=== PATIENT | male | born 1955 | race Caucasian/White ===

== ENCOUNTER 2018-02-04 14:06 | Day surgery (SDC) | payer OTHER ==
[2018-02-04] MEDS ORDERED: LR 1,000 ML IV ONE (14:17)
[2018-02-04] MEDS ORDERED: LIDOCAINE 2% JELLY 20 ML (UROJECT) ONE (15:28)
--- NOTE | 2018-02-04 16:07 | PDHPUP ---
History & Physical Update H&P update statement: This history and physical update is based on an assessment of the patient which was completed after admission or registration (within 24 hours), but prior to the surgery/procedure. H&P update: H&P reviewed & patient examined, no change in patient's condition since H&P completed
[2018-02-04] MEDS ORDERED: CEFAZOLIN 2 GM/DEXTROSE/100 ML BAG IV ONE (16:08)
[2018-02-04] MEDS ORDERED: MIDAZOLAM 2 MG/2 ML VIAL IVP ONE (16:09)
--- NOTE | 2018-02-04 16:09 | PDANEPAE ---
ANE History of Present Illness prostate photovaporization ANE Past Medical History - Cardiovascular History Hx Hypertension: Yes Hx Arrhythmias: No Hx Chest Pain: No Hx Coronary Artery / Peripheral Vascular Disease: No Hx CHF / Valvular Disease: No Hx Palpitations: No - Pulmonary History Hx COPD: No Hx Asthma/Reactive Airway Disease: No Hx Recent Upper Respiratory Infection: No Hx Oxygen in Use at Home: No Hx Sleep Apnea: No Sleep Apnea Screening Result - Last Documented: Negative - Neurologic History Hx Cerebrovascular Accident: No Hx Seizures: No Hx Dementia: No - Endocrine History Hx Diabetes: No Obesity: no Endocrine History Comment: HYPOTHYROID - Renal History Hx Renal Disorders: Yes Renal History Comment: CKD. BPH - Liver History Hx Hepatic Disorders: No - Neurological & Psychiatric Hx Hx Neurological and Psychiatric Disorders: No - Cancer History Hx Cancer: Yes Cancer History Comment: BLADDER - Congenital Disorder History Hx Congenital Disorders: No - GI History Hx Gastrointestinal Disorders: No Gastrointestinal History Comment: INTERMITTENT HEARTBURN - Other Health History Other Health History: PSORIASIS LT LEG - Chronic Pain History Chronic Pain: No - Surgical History Prior Surgeries: AVE EYE LENS REPLACEMENT 11/2017. REMVL BLADDER TUMOR 2013. REMVL PSOAS MASS-BENIGN. RT ING HERNIA. COLONOSCOPY ANE Review of Systems Review of Systems: - Exercise capacity METS (RN): 4 METS ANE Patient History - Allergies Allergies/Adverse Reactions: mushroom Allergy (Verified 09/28/15 13:01) - Home Medications Home medications: home medication list seen and reviewed Home Medications: Crestor 20mg (*) 20 mg PO DAILY 09/28/15 [Last Taken 02/04/18] Levothyroxine 25 mg DAILY 09/28/15 [Last Taken 02/04/18] Lutein 10 mg DAILY 09/28/15 [Last Taken 02/04/18] Fish Oil 1,000 mg Softgel DAILY 01/28/18 [Last Taken 02/04/18] Herbals/Supplements -Info Only DAILY 01/28/18 [Last Taken 02/04/18] Losartan Potassium HS 01/28/18 [Last Taken 02/04/18] - NPO status NPO Since - Liquids (Date): 02/04/18 NPO Since - Liquids (Time): 12:15 NPO Since - Solids (Date): 02/04/18 NPO Since - Solids (Time): 00:15 - Anes Hx Anes Hx: no prior problems - Smoking Hx Smoking Status: Never smoked - Family Anes Hx Family Hx Anesthesia Complications: NONE ANE Labs/Vital Signs - Vital Signs Blood Pressure: 157/95 Heart Rate: 70 Respiratory Rate: 16 O2 Sat (%): 98 Height: 185.42 cm Weight: 92.986 kg ANE Physical Exam - Airway Neck exam: FROM Mallampati Score: Class 2 Mouth exam: normal dental/mouth exam - Pulmonary Pulmonary: no respiratory distress - Cardiovascular Cardiovascular: regular rate and rhythym - ASA Status ASA Status: II ANE Anesthesia Plan Anesthesia Plan: general endotracheal anesthesia Urgent/Emergent Case: Dre nixon completed preop but documented later for safe timely pt care
[2018-02-04] MEDS ORDERED: PROPOFOL 200 MG/20 ML VIAL ONE (16:14)
[2018-02-04] MEDS ORDERED: fentaNYL 250 MCG/5 ML INJ ONE (16:14)
[2018-02-04] MEDS ORDERED: ceFAZolin 2 GM/DEXTROSE 100 ML IV ONE (16:30)
--- NOTE | 2018-02-04 16:30 | POSTANESTH ---
Post Anesthetic Evaluation Cardiovascular Status: Normal, Stable Respiratory Status: Normal, Stable Level of Consciousness/Mental Status: Can Participate in Eval Pain Control: Adequate, Prn Tx Ordered Nausea/Vomiting Control: Adequate, Prn Tx Ordered Complications Possibly Related to Anesthesia: None Noted
--- NOTE | 2018-02-04 16:38 | POSTANESTH ---
Post Anesthetic Evaluation Cardiovascular Status: Normal, Stable Respiratory Status: Normal, Stable Level of Consciousness/Mental Status: Can Participate in Eval, Alert and Oriented Pain Control: Adequate, Prn Tx Ordered Nausea/Vomiting Control: Adequate, Prn Tx Ordered Complications Possibly Related to Anesthesia: None Noted
[2018-02-04] MEDS ORDERED: LIDOCAINE 2% 100 MG/5 ML SYR ONE (17:12)
[2018-02-04] MEDS ORDERED: DEXAMETHASONE 4 MG/ML VIAL ONE (17:12)
[2018-02-04] MEDS ORDERED: ROCURONIUM 50 MG/5 ML VIAL ONE (17:12)
[2018-02-04] MEDS ORDERED: SUGAMMADEX SODIUM 200 MG/2 ML VIAL IVP ONE (17:12)
[2018-02-04] MEDS ORDERED: ONDANSETRON 4 MG/2 ML VIAL ONE (17:12)
[2018-02-04] MEDS ORDERED: KETOROLAC 30 MG/1 ML SDV ONE (17:12)
[2018-02-04] MEDS ORDERED: HYDROCODONE/APAP 5/325 TAB PO PRN (17:25)
[2018-02-04] MEDS ORDERED: ONDANSETRON 4 MG/2 ML VIAL IVP PRN (17:25)
[2018-02-04] MEDS ORDERED: LR 500 ML IV PRN (17:25)
[2018-02-04] MEDS ORDERED: ACETAMINOPHEN 500 MG TAB PO PRN (17:25)
[2018-02-04] MEDS ORDERED: ALBUTEROL 3 ML DEYVIAL IH PRN (17:25)
[2018-02-04] MEDS ORDERED: PROMETHAZINE HCL 25 MG/ML INJ IVP PRN (17:25)
[2018-02-04] MEDS ORDERED: oxyCODONE IR 5 MG TAB PO PRN (17:25)
[2018-02-04] MEDS ORDERED: NALOXONE HCL 0.4 MG/ML INJ IVP PRN (17:25)
[2018-02-04] MEDS ORDERED: HYDROmorphONE/DILAUDID 2 MG/ML INJ IVP PRN (17:25)
[2018-02-04] MEDS ORDERED: fentaNYL 100 MCG/2 ML INJ IVP PRN (17:25)
[2018-02-04] MEDS ORDERED: METOCLOPRAMIDE 10 MG/2 ML VIAL IVP PRN (17:25)
--- NOTE | 2018-02-04 18:08 | POSTOPPROG ---
Post Op Note Date of Operation: 02/04/18 Surgeon: Chirag Deleon Anesthesiologist: WILLIAM Anesthesia: GET(General Endotracheal) Pre-op Diagnosis: BPH Post-op Diagnosis: same Indication: as above Procedure: PVP Inf/Abcess present in the surg proc area at time of surgery?: No Depth: Deep Incisional (Fascial) EBL: Minimal Drains: Other
[2018-02-04] MEDS ORDERED: OXYCODONE/APAP 5/325 TAB PO ONE (18:09)
[2018-02-04] MEDS ORDERED: OXYBUTYNIN 5 MG EXT REL TAB PO ONE (19:00)
[2018-02-04] MEDS ORDERED: oxyCODONE IR 5 MG TAB ONE (19:24)
[2018-02-04 20:06] VITALS: BP 122/77
--- NOTE | 2018-02-06 09:17 | GOP ---
DATE OF OPERATION: SURGEON: Chirag Deleon MD [employer] MECHANIC: None. PREOPERATIVE DIAGNOSIS: BPH with urinary obstruction. POSTOPERATIVE DIAGNOSIS: BPH with urinary obstruction. PROCEDURE PERFORMED: Photovaporization of the prostate. XPS Laser System used. FINDINGS: XPS Laser System used, 210, 335 berry of laser energy. Laser time 35 minutes. Excellent channel formed from 10 o'clock to 2 o'clock from the bladder neck down to the veru. Ureteric orifice s were visualized before and after the operation. Pictures were taken of the ureteric orifices and t he channel before and after the operation to ensure no injury, and there was none. Pictures were rian nted and placed in the patient's chart. 80 berry was used at the bladder neck and the veru, 180 watt s in between, and 20-Thai 3-way Ochoa catheter was placed to gentle traction at the end of the case . SPECIMENS: None. DESCRIPTION OF PROCEDURE: Patient was identified by name, medical record number, and wrist band, bro ught to the operating room, laid supine on the table, prepped and draped in standard surgical fashion . A 22-Thai resectoscope was inserted into the bladder. The entire bladder was visualized. Pictu res were taken before and after the operation. XPS 180 watt GreenLight laser photovaporization of th e prostate was performed, as described above in the operative findings. At the end of the procedure, a 20-Thai 3-way Ochoa catheter was placed to gentle traction. The patient was awakened from anest hesia, brought to the recovery room in stable condition. /[id number]/MODL
== END 2018-02-04 20:05 | disposition home or self-care (01) ==
LOC: FSGY 14:06
PROVIDERS: ATTEND Urology
PROC: 0V508ZZ Destruction of Prostate, Via Natural or Artificial Opening Endoscopic (ICD-10-PCS; principal; 2018-02-04 15:45)
DX: N40.1 Benign prostatic hyperplasia with lower urinary tract symptoms (principal); R35.0 Frequency of micturition; R39.15 Urgency of urination; I10 Essential (primary) hypertension; E78.5 Hyperlipidemia, unspecified; E03.9 Hypothyroidism, unspecified; Z85.51 Personal history of malignant neoplasm of bladder
CPT/HCPCS: J0690; J1100; J1885; J2001; J2250; J2405; J2704; J3010